=== PATIENT | female | born 1990 ===

== ENCOUNTER 2016-08-14 01:54 | Inpatient (IN) | payer OTHER, MEDICAID ==
[2016-08-14 02:16] VITALS: BMI 32.3
[2016-08-14] MEDS ORDERED: LACTATED RINGERS 1,000 ML IV PRN (02:42)
[2016-08-14] MEDS ORDERED: OXYTOCIN IN LR 500 ML IV ONE (02:42)
[2016-08-14] MEDS ORDERED: LACTATED RINGERS 1,000 ML IV SCH (02:45)
[2016-08-14] MEDS ORDERED: LIDOCAINE 1% (PRES FREE) 30 ML VIAL ONE (02:48)
[2016-08-14] MEDS ORDERED: OXYTOCIN 10 UNITS/ML VIAL ONE (02:48)
[2016-08-14] MEDS ORDERED: MINERAL OIL 25 ML BOT ONE (02:48)
[2016-08-14] MEDS ORDERED: IV START KIT ONE (02:49)
[2016-08-14] MEDS ORDERED: PUMP TUBING ONE (02:49)
[2016-08-14] MEDS ORDERED: LIDOCAINE Viscous 2% 15 ML UDCUP ONE (02:49)
[2016-08-14] MEDS ORDERED: PENICILLIN G POTASSIUM 5 MMU VIAL ONE (02:52)
[2016-08-14] MEDS ORDERED: SODIUM CHLORIDE 0.9% FLUSH 20 ML ONE (02:52)
[2016-08-14] MEDS ORDERED: NS 0.9% (MINI-BAG PLUS) 100 ML IV ONE (02:53)
[2016-08-14] MEDS ORDERED: PENICILLIN G POTASSIUM 5 MMU in NS 0.9% (MINI-BAG PLUS) 100 ML IV ONE (03:00)
[2016-08-14 03:26] LABS: HEMATOCRIT 31.2 % (37.0-47.0); HEMOGLOBIN 9.6 gm/l (12.0-16.0); MEAN CORPUSCULAR HEMOGLOBIN 23.7 pg (27.0-31.0); MEAN CORPUSCULAR HGB CONC 30.8 g/dl (33.0-37.0); RED CELL DISTRIBUTION WIDTH 16.3 % (11.5-14.5)
[2016-08-14] MEDS ORDERED: LIDOCAINE 1% (PRES FREE) 30 ML VIAL EP ONE (05:14)
[2016-08-14] MEDS ORDERED: MAGNESIUM HYDROXIDE 30 ML UDCUP PO PRN (05:30)
[2016-08-14] MEDS ORDERED: OXYCODONE/ACETAMINOPHEN 5/325 MG TABLET PO PRN (05:30)
[2016-08-14] MEDS ORDERED: LANOLIN 50 APPLIC/7G TUBE TP PRN (05:30)
[2016-08-14] MEDS ORDERED: SENNOSIDES 8.6 MG TABLET PO PRN (05:30)
[2016-08-14] MEDS ORDERED: BENZOCAINE/MENTHOL 60 APPLIC/BOT TP PRN (05:30)
--- NOTE | 2016-08-14 05:42 | PCMDEL ---
Delivery Note - Labor 1st stage (hr/min):: 2hrs 2nd stage (hr/min):: 5min 3rd stage (hr/min):: 18min Total (hr/min):: 2hrs 23 min Pushed (hr/min):: 5 min - Delivery Delivery (Date): 08/14/16 Delivery (Time): 05:05 Infant Gender: Male Presentation: Cephalic Position: OA Umbilical Cord: 3 Vessel Delayed Cord Clamping:: > 3 min 1 Minute Total: 9 5 Minute Total: 9 Placenta:: intact EBL:: 300cc Perineum:: superficial laceration in midline, superficial right labial and at apex of vagina Suture:: 3-0 and 2-0 chromic Anesthesia/Meds:: lidocaine Length ROM:: 4hrs 35 min Comments:: delivery note: patient pushed effectively once fully dilated, spontaneous vaginal delivery of vertex from ryan to oa position with easy delivery of shoulders and body. baby cried spontaneously, placed skin to skin on mother's abdomen. delayed cord clamping, then cord blood obtained. three superficial lacerations noted: perineal, right labial and at apex of vagina. all areas injected with lidocaine then interrupted sutures used to reapproximate tissue edges. placenta delivered intact. cervix intact. no other vaginal lacerations noted. sponge, needle and instrument count correct. ebc 300cc.
[2016-08-14] MEDS: IBUPROFEN 800 MG TABLET PO PRN ×3 (06:00→22:38)
[2016-08-14] MEDS ORDERED: PENICILLIN G 3 MIL UNIT PREMIX 3 MMU in Premix (D5W) 50 ml 1 EACH IV SCH (08:00)
--- NOTE | 2016-08-14 08:39 | HP ---
HERMES SANCHEZ [id number] DATE OF : 1990 HISTORY OF PRESENT ILLNESS: This is a 25-year-old female who was admitted to [facility] with regular uterine contractions. She had spontaneous rupture of membranes at 12:30 A.M. and contractions began at 1:00 A.M. Her estimated date of delivery is 08/09/2016, making her 40 weeks and 5 days, and her last period was 10/24/2015. OB HISTORY: She is G-3, P-1, 0-1-1. One spontaneous vaginal delivery in 2016 of an 8 pound and 4 ounce female, which she described as a quick delivery, only lasting one hour, and one spontaneous . No D&C. PAST MEDICAL HISTORY: Negative. PAST SURGICAL HISTORY: Negative. ALLERGIES: Negative. SOCIAL HISTORY: Nonsmoker and nondrinker. REVIEW OF SYSTEMS: Noncontributory. PHYSICAL EXAMINATION: HEENT: Normal. NECK: Normal. BREASTS: Exam deferred. HEART: Regular sinus rhythm. No murmurs. LUNGS: Clear. ABDOMEN: Gravid. heart present. Estimated weight 8 pounds. PELVIC: With my examination the cervix was 8 cm, 100% effaced, vertex, at zero station, with a bulging forewaters, although she did have spontaneous rupture of membranes at 12:30 A.M. on 08/14/2016. The forewaters were broken and she had clear amniotic fluid. She is Group B Strep positive and has received the first dose of penicillin. IMPRESSION: 1. Intrauterine at 40.5 weeks. 2. Group B Strep positive. 3. Active labor. PLAN: Anticipate normal vaginal delivery.
[2016-08-14] MEDS: FERROUS SULFATE (65 Fe) 325 MG TABLET PO SCH (21:00)
[2016-08-14] MEDS ORDERED: IBUPROFEN 800 MG TABLET PO PRN (22:51)
[2016-08-15 06:10] LABS: HEMOGLOBIN 9.1 gm/l (12.0-16.0)
[2016-08-15 09:07] VITALS: BP 118/68
[2016-08-15] MEDS: FERROUS SULFATE (65 Fe) 325 MG TABLET PO SCH (11:04)
--- NOTE | 2016-08-15 11:54 | PDOC39B ---
Hospital Course: ADMIT DATE: 08/14/16 DISCHARGE DATE: 08/15/16 ADMISSION DIAGNOSES: intrauterine at 40.5 weeks, spontaneous rupture of membranes, labor PROCEDURES: spontaneous vaginal delivery, repair of labial lacerations HISTORY OF PRESENT ILLNESS: 25 year old G3 T1 L1 at 40 weeks 5 days presenting with history of spontaneous rupture of membranes and labor HOSPITAL COURSE: The patient had an uneventful post course with exception of anemia. she is requesting discharge. By day of discharge the patient is ambulating, eating, voiding, and passing flatus without difficulty. Pain is controlled and lochia is appropriate. She is [] - Physical Exam Vital Signs: Temp Pulse Resp BP Pulse Ox 98.1 F 68 16 118/68 08/15/16 08:45 08/15/16 08:45 08/15/16 08:45 08/15/16 08:45 General: Afebrile, No Acute Distress Psych/Mental Status: Mood/Affect Appropriate, Judgment/Insight Intact, Bonding Well Breast: Soft, Skin intact, Nipples Intact, No Tenderness, No Erythema, No Engorged Fundus: Firm, Midline, Below Umbilicus, Other (nontender) Genitourinary: Other (voiding without difficulty) Lochia: Light Extremities: No Tenderness - Discharge Diagnosis (1) Term delivered Status: Acute (2) Perineal laceration involving vulva Status: Acute (3) Anemia, Status: Acute - Discharge Plan Condition: Stable Disposition: Home Additional Instructions: nothing in vagina x 6 weeks, office visit with dr smith in 6 weeks. tylenol as needed (patient declined analgesics), take iron supplementation as prescribed. Prescriptions: FERROUS SULFATE (65 Fe) [IRON FERROUS SULFATE 325 MG TABLET (SHF)] 325 mg PO DAILY #30 tab
== END 2016-08-15 17:05 | disposition home or self-care (01) | DRG 775 ==
LOC: FBCOUT 01:54 → FBC 01:54 → FBCOUT 02:45 → FBC 02:45
PROVIDERS: ADMIT Obstetrics & Gynecology; ATTEND Obstetrics & Gynecology
PROC: 10E0XZZ Delivery of Products of Conception, External Approach (ICD-10-PCS; principal; 2016-08-14)
PROC: 0UQM0ZZ Repair Vulva, Open Approach (ICD-10-PCS; 2016-08-14)
DX: O99.824 Streptococcus B carrier state complicating childbirth (principal); Z37.0 Single live birth; O70.0 First degree perineal laceration during delivery; O90.81 Anemia of the puerperium; Z3A.40 40 weeks gestation of pregnancy